=== PATIENT | male | born 1995 | race Caucasian/White ===

== ENCOUNTER 2017-04-27 12:22 | Emergency (ER) | payer OTHER ==
[2017-04-27 16:35] VITALS: BP 135/82
== END 2017-04-27 16:35 | disposition home or self-care (01) ==
LOC: ED 12:22
DX: S39.011A Strain of muscle, fascia and tendon of abdomen, initial encounter (principal); X58.XXXA Exposure to other specified factors, initial encounter; Y93.89 Activity, other specified; Y99.8 Other external cause status; Y92.89 Other specified places as the place of occurrence of the external cause

== ENCOUNTER 2018-05-24 22:51 | Emergency (ER) | payer SELFPAY ==
[~2018-05-24] VITALS: Ht 175.3 cm; Wt 64.9 kg
[2018-05-24 22:58] VITALS: Ht 175.3 cm; Wt 64.9 kg
[2018-05-24 23:51] VITALS: BP 127/74
== END 2018-05-25 00:08 | disposition home or self-care (01) ==
LOC: ED 22:51
DX: F41.9 Anxiety disorder, unspecified (principal)